=== PATIENT | male | born 1970 | race Caucasian/White ===

== ENCOUNTER 2017-06-25 11:22 | Emergency (ER) | payer OTHER ==
[2017-06-25 12:43] VITALS: BP 137/90
--- NOTE | 2017-06-25 13:33 | ED ---
Ed Cordova Julia, scribed for Wilmar Oviedo on 06/25/17 at 1214 . Abdominal Pain/Male - HPI Summary HPI Summary: This patient is a 46 year old M presenting to [facility] with a chief complaint of infection to the abdomen where a previous GI tube was placed. He states describes the infected area as hard and previously drained with pus. Patient reports previous fever. Patient rates pain 8/10 in severity. He states he had a CT scan and blood work performed on 06/18/17. He states he has not followed up with a surgeon. He has not taken a 10 day course of abx. He states he was sent here by his PCP because he is unable to be seen and needs abx. Previous A/P CT report reviewed. - History of Current Complaint Chief Complaint: EDAbdPain Stated Complaint: ABD PAIN Time Seen by Provider: 06/25/17 11:54 Hx Obtained From: Patient Onset/Duration: Gradual Onset, Lasting Weeks Timing: Constant Pain Intensity: 8 Pain Scale Used: 0-10 Numeric Location: Epigastric Associated Signs And Symptoms: Positive: Other - pus drainage - Allergies/Home Medications Allergies/Adverse Reactions: Allergies Allergy/AdvReac Type Severity Reaction Status Date / Time No Known Allergies Allergy none Verified 06/17/17 16:39 PMH/Surg Hx/FS Hx/Imm Hx Endocrine/Hematology History: Denies: Hx Diabetes Cardiovascular History: Denies: Hx Hypertension History: Denies: Hx Renal Disease - Surgical History Surgery Procedure, Year, and Place: feeding tube. tongue repair. titanium plate in jaw Infectious Disease History: No Infectious Disease History: Denies: Traveled Outside the [place] in Last 30 Days - Family History Known Family History: Positive: Hypertension, Other - RA, dementia - Social History Alcohol Use: Occasionally Review of Systems Positive: Fever Positive: Abdominal Pain - hard mass with pus drainage All Other Systems Reviewed And Are Negative: Yes Physical Exam - Summary Physical Exam Summary: Appearance: Well appearing, no pain distress Skin: warm, dry, reflects adequate perfusion Head/face: normal Eyes: EOMI, BESSIE ENT: normal Neck: supple, non-tender Respiratory: CTA, breath sounds present Cardiovascular: RRR, pulses symmetrical Abdomen: healed scar at mid abdomen above the umbilicus, small half cm healing wound lateral to the incision with mild tenderness Bowel: present Musculoskeletal: normal, strength/ROM intact Neuro: normal, sensory motor intact, A&Ox3 Triage Information Reviewed: Yes Vital Signs On Initial Exam: Initial Vitals Temp Pulse Resp BP Pulse Ox 98.4 F 94 20 155/99 97 06/25/17 11:40 06/25/17 11:40 06/25/17 11:40 06/25/17 11:40 06/25/17 11:40 Vital Signs Reviewed: Yes Diagnostics - Vital Signs Vital Signs Temp Pulse Resp BP Pulse Ox 06/25/17 11:40 98.4 F 94 20 155/99 97 - Laboratory Lab Statement: Any lab studies that have been ordered have been reviewed, and results considered in the medical decision making process. Re-Evaluation - Re-Evaluation 1 Re-Evaluation Time: 12:15 Comment: Discussed discharge with patient. Abdominal Pain Fem Course/Dx - Course Course Of Treatment: Patient presents with abdominal wall infection with drainage. Patient states he had previous CT and bloodwork performed 06/18/17. Patient states he was sent from PCP to get abx because he cannot come to the office. Most recent CT report was reviewed. Patient refused bloodwork. Patient is instructed to follow up with a surgeon, and was given contact information. Patient is given a prescrition for antibiotics and is discharged. - Diagnoses Differential Diagnosis/HQI/PQRI: Other - abd wall cellulitis/ventral hernia Provider Diagnoses: Abdominal wall cellulitis, Ventral hernia Discharge - Sign-Out/Discharge Documenting (check all that apply): Discharge - Discharge Plan Condition: Stable Disposition: HOME Prescriptions: Sulfamethox/Trimethoprim DS* [Bactrim DS 800/160 TAB*] 1 tab PO BID #20 tab Sulfamethox/Trimethoprim DS* [Bactrim DS 800/160 TAB*] 1 tab PO BID #20 tab Patient Education Materials: Cellulitis (ED) Referrals: Wale Bernardo MD [Medical Doctor] - 1 Day (Follow up with this surgeon to set up an appointment.) - Billing Disposition and Condition Condition: STABLE Disposition: HOME The documentation as recorded by the Ed barnes Julia accurately reflects the service I personally performed and the decisions made by me, Wilmar Oviedo.
== END 2017-06-25 12:39 | disposition home or self-care (01) ==
LOC: ED 11:22
DX: L03.311 Cellulitis of abdominal wall (principal); K43.9 Ventral hernia without obstruction or gangrene
CPT/HCPCS: 99282